=== PATIENT | female | born 1985 | race African-American/Black ===

== ENCOUNTER 2023-07-20 09:19 | Emergency (ER) | payer SELFPAY ==
[~2023-07-20] VITALS: Ht 168 cm; Wt 79.1 kg
[2023-07-20 09:48] VITALS: TEMP 98.2
[2023-07-20 12:55] VITALS: BP 151/94; PULSE 85
== END 2023-07-20 13:03 | disposition home or self-care (01) ==
LOC: COL.ER 09:19
DX: J06.9 Acute upper respiratory infection, unspecified (principal)